=== PATIENT | male | born 1960 ===

== ENCOUNTER 2017-08-06 07:21 | Inpatient (IN) | payer BC ==
[~2017-08-06 07:21] MED LIST: Buffered Lidocaine 0.9% SYRIN* 5 ML/SYR SYRINGE INTRADERM ONE
[2017-08-06] MEDS ORDERED: Buffered Lidocaine 0.9% SYRIN* 5 ML/SYR SYRINGE ONE (07:33)
[2017-08-06] MEDS ORDERED: Clindamycin 900 MG IVPREMIX(* 900 MG/50 ML SDV IV ONE (07:33)
[2017-08-06] MEDS ORDERED: ceFAZolin 2 GM PREMIX (*) 2 GM/50 ML BAG IVPB ONE (07:33)
[2017-08-06] MEDS ORDERED: ceFAZolin 1 GM in Dextrose (*) 1 GM/50 ML BAG IVPB ONE (07:33)
[2017-08-06] MEDS ORDERED: Heparin VIAL(*) 5000 UNITS/ML VIAL (FIVE THOUSAND) ONE (07:46)
[2017-08-06] MEDS ORDERED: fentaNYL* 50 MCG/ML 2 ML VIAL (100 MCG VIAL) ONE ×3 (09:26→13:37)
[2017-08-06] MEDS ORDERED: Midazolam* 1 MG/ML 2 ML VIAL (2 MG) ONE (09:26)
[2017-08-06] MEDS ORDERED: Bupivacaine 0.25% SDV* 30 ML ONE ×2 (09:48→12:27)
[2017-08-06] MEDS ORDERED: Succinylcholine* 20 MG/ML 10 ML VIAL ONE (10:15)
[2017-08-06] MEDS ORDERED: Propofol* 10 MG/ML 20 ML BTL IV PUSH ONE (10:15)
[2017-08-06] MEDS ORDERED: Ondansetron INJ* 2 MG/ML VIAL ONE ×2 (10:15→14:30)
[2017-08-06] MEDS ORDERED: Dexamethasone IV* 4 MG/ML 1 ML (4 MG) ONE (10:15)
[2017-08-06] MEDS ORDERED: Lidocaine 2% PF * 5 ML VIAL ONE (10:16)
[2017-08-06] MEDS ORDERED: Cisatracurium* 2 MG/ML MDV 5 ML ONE (10:25)
[2017-08-06] MEDS ORDERED: EPHEDrine (Pressors)* 50 MG/ML VIAL ONE (10:44)
[2017-08-06] MEDS ORDERED: Phenylephrine INJ* 10 MG/ML 1 ML VIAL (10 MG) ONE (10:49)
[2017-08-06] MEDS ORDERED: HYDROmorphone INJ* 1 MG/ML CARPUJECT SYRINGE IV PRN (11:24)
[2017-08-06] MEDS ORDERED: Metoclopramide IV* 5 MG/ML 2 ML VIAL IV PRN ×2 (11:24→14:00)
[2017-08-06] MEDS ORDERED: PROCHLORPERAZINE INJ 5 MG/ML 2 ML VIAL IV PRN (11:24)
[2017-08-06] MEDS ORDERED: Naloxone* 0.4 MG/ML 1 ML VIAL IV PRN (11:24)
--- NOTE | 2017-08-06 12:36 | BRIEFOPN ---
Brief Operative Note - Surgery Procedures: Pre-OP Diagnoses: Clinically severe obesity Post-op Diagnosis: same Procedure: Laparoscopic sleeve gastrectomy Surgeon: Moon Asst: ADNIA Bray Anethesia: TYRESE EBL: minimal IVF: crystalloid Specimen: portion of stomach Drains: none
[2017-08-06] MEDS ORDERED: HYDROcodone/ACET. 7.5/325 LIQ* 15 ML UDC PO PRN (12:37)
[2017-08-06] MEDS: fentaNYL* 50 MCG/ML 2 ML VIAL (100 MCG VIAL) IV PRN ×5 (13:15→13:39)
[2017-08-06] MEDS ORDERED: HYDROmorphone INJ* 2 MG/ML CARPUJECT SYRINGE ONE (13:48)
[2017-08-06] MEDS: Ondansetron INJ* 2 MG/ML VIAL IV PRN ×2 (14:32→19:26)
[2017-08-06] MEDS ORDERED: Metoclopramide IV* 5 MG/ML 2 ML VIAL ONE (15:16)
[2017-08-06] MEDS: Heparin VIAL(*) 5000 UNITS/ML VIAL (FIVE THOUSAND) SUBCUT SCH ×2 (15:55→22:04)
[2017-08-06] MEDS: HYDROmorphone INJ* 2 MG/ML CARPUJECT SYRINGE IV PRN (20:57)
[2017-08-06] MEDS: Famotidine IV* 10 MG/ML 2 ML (20 mg) IV SLOW PU SCH (22:05)
[2017-08-07] MEDS: Ketorolac INJ* 15 MG/ML 1 ML VIAL IV PRN ×2 (00:18→11:07)
--- NOTE | 2017-08-07 00:20 | OP ---
CC: Kimberly Alba NP; [facility] * DATE OF OPERATION: 08/06/17 - ROOM #352 DATE OF : 58 SURGEON: Nicholas Mustafa MD. [employer] COUNSELORS: DANIA Mon. ANESTHESIOLOGIST: Kelly Silverman MD ANESTHESIA: General. PRE-OPERATIVE DIAGNOSES: 1. Clinically severe obesity. 2. Obstructive sleep apnea. 3. Gastroesophageal reflux disease. 4. Hypertension. POST-OPERATIVE DIAGNOSES: 1. Clinically severe obesity. 2. Obstructive sleep apnea. 3. Gastroesophageal reflux disease. 4. Hypertension. OPERATIVE PROCEDURE: Laparoscopic sleeve gastrectomy. ESTIMATED BLOOD LOSS: Minimal. IV FLUIDS: Minimal crystalloid fluid given. SPECIMEN: Portion of the stomach. COUNTS: Lap pad count and instrument count are correct at the end of the procedure. DESCRIPTION OF PROCEDURE: The patient was identified in the preoperative area, brought to the OR and placed on the operating table in a supine position. Preoperative antibiotics were given. Sequential devices were placed on bilateral lower extremities and general anesthesia was induced. The patient's abdomen was clipped of hair and then prepped and draped in the standard surgical fashion and a time-out was performed. Folds of the umbilicus were elevated anteriorly and a Veress needle was inserted into the abdominal cavity, which was then allowed to insufflate to a pressure of 15 mmHg. The patient tolerated the insufflation well. We utilized the previous incision and cut through the scar at the upper midline and I placed a 12-mm trocar into the abdomen. Laparoscope was inserted through this. There was no evidence of injury from the trocar incision or from the Veress needle, which was then removed. Additional trocars were then placed in the following position: A 5 mm in the left upper quadrant and a 12 mm in the right upper quadrant. Review of the liver showed that it was normal size without any lesions. We did place a Kayleigh retractor through the subxiphoid port and allowed the liver to be retracted anteriorly into the right. We saw scarring from previous lap band placement at this site, but I felt comfortable going forward. We can take this down and an additional 5-mm trocar was then placed in the left lateral position and the patient's table was placed in a deep reverse Trendelenburg. The greater omentum curved around towards the lesser omentum, this was sharply taken down. We saw previously placed sutures from the band and these were cut. There was minimal capsule from previous surgery and it extended mostly along the fat pad. This fat pad was reflected towards the right lower quadrant and both blunt and sharp dissection was utilized to free this up anteriorly. Next, a retrogastric tunnel was made at 6 cm proximal to the pylorus muscle along the greater curvature. We took the vasculature to the greater curvature with LigaSure device right across the short gastric vessels. Posterior attachments were similarly taken with the LigaSure device and we then slowly dissected mostly bluntly, but then sharply the posterior attachments and attachments up at the diaphragm. These were scarring from previous band placement. We then were able to rotate the stomach along its axis. Next, a 60-mm purple stapler with reinforcement strips were placed across the area of the greater curvature, 6 cm proximal to the pylorus and extended towards the incisura. This was clamped and a 40-Yoruba bougie was then inserted with ease into the distal stomach. Hugging the bougie, we fired the first staple line. Additional 60 mm purple TARA staplers with reinforcement strips were then taken staying along the line. We did have to do additional dissection posteriorly that was not done initially to allow the stomach to be rotated along its lesser curvature. There were more posterior attachments once we had the bougie in place for identification sake. The sleeve stomach was then completed with additional 60 mm with one last firing of 45 mm purple TARA stapling with reinforcement strips. Staple line did curve posteriorly at the last staple line. We did remove the bougie prior to this placement. This was not cork screwed and for the most part, the staple line was laterally and good positioning. Hemostasis was excellent. The Kayleigh retractor was removed. The resected portion of the stomach was placed in an endoscopic retrieval bag, this was brought out through the right upper quadrant port site. After dilating the port site, the fascia was reapproximated at this site with 0 Polysorb suture using a Weck device and using 1 simple stitch. The abdomen was allowed to collapse. Trocars were removed under direct vision. All 5 skin incisions were reapproximated with 4-0 Monocryl subcuticular sutures. Steri-Strips and sterile dressing were applied. The patient tolerated the procedure well, was transferred to the PACU in stable condition. [id number]/[facility] #: [id number] MTDD
[2017-08-07] MEDS: Heparin VIAL(*) 5000 UNITS/ML VIAL (FIVE THOUSAND) SUBCUT SCH ×2 (05:10→14:18)
[2017-08-07] MEDS: HYDROmorphone INJ* 2 MG/ML CARPUJECT SYRINGE IV PRN (06:25)
--- NOTE | 2017-08-07 09:05 | PN ---
Progress Note - Progress Note Date of Service: 08/07/17 SOAP: Subjective: pt seen and examined. Feels well. Objective: af vss uo good a and ox3, nad lungs clear abdo: soft/ obese/ incisional tenderness ext wnl Assessment: POD1 sleeve gastrectomy Plan: ugi diet d/c planning likely today SACMA to cover me until 08/11/17. Pt is aware
--- NOTE | 2017-08-07 10:49 | RAD ---
HISTORY: Status post sleeve gastrectomy COMPARISONS: April 02, 2015 TECHNIQUE: A single contrast fluoroscopic study was performed of the esophagus and upper GI tract. Water-soluble liquid contrast was administered under fluoroscopic observation. Multiple digital spot images were obtained Total fluoroscopy time is 0.4 minutes. FINDINGS: ESOPHAGUS: The esophagus is normal in contour, course, and caliber. There is no stricture or web. Contrast passes easily through the gastroesophageal junction into the stomach. There is normal esophageal motility. STOMACH: The patient is status post gastrectomy. Contrast passes easily through the residual stomach. There is no appreciable extravasation or obstruction.. DUODENUM: The duodenum is unremarkable. SMALL BOWEL: The proximal small bowel is unremarkable.. IMPRESSION: STATUS POST GASTRECTOMY. NO APPRECIABLE EXTRAVASATION OR OBSTRUCTION. CPT II Codes: 6045F
[2017-08-07] MEDS: Ondansetron INJ* 2 MG/ML VIAL IV PRN (11:05)
[2017-08-07] MEDS: Famotidine IV* 10 MG/ML 2 ML (20 mg) IV SLOW PU SCH (11:06)
[2017-08-07] MEDS ORDERED: D5W 1/2 NS KCl 20 Meq 1000 ML* 1,000 ML IV SCH (12:38)
[2017-08-07 14:03] VITALS: BP 132/60
--- NOTE | 2017-08-07 15:41 | DS ---
DATE OF ADMISSION: 08/06/2017. DATE OF DISCHARGE: 08/07/2017. ATTENDING SURGEON: Dr. Nicholas Mustafa * (dictated by Mary Kay Fischer NP). HOSPITAL COURSE: Please refer to admission history and physical for admission details. The patient was taken to the operating room on Sunday, August 06, 2017 and underwent laparoscopic sleeve gastrectomy by Dr. Mustafa. He had an eventful postoperative course and required minimal pain medication and was able to meet the criteria for oral intake of bariatric clear liquids. He was ambulating in the halls and using Inspiron. He was seen earlier this morning by Dr. Mustafa and by myself this afternoon and he has met criteria for discharge. PHYSICAL EXAMINATION: General: Well-appearing, in no acute distress. Vital signs are stable. He is afebrile. O2 saturation on room air is 99 percent. Lungs: Breath sounds bilaterally clear and equal. Heart: Regular rate and rhythm. No murmurs or rubs appreciated. Abdomen: Laparoscopic port sites are intact with Steri-Strips which are clean and dry. There is no surrounding erythema or drainage. Active bowel sounds. Abdomen is soft with mild incisional tenderness. Extremities are warm without edema or skin ulceration and calves are nontender. IMPRESSION: Status post laparoscopic sleeve gastrectomy, doing extremely well. PLAN: Discharge home today. Instructions were reviewed with the patient. He has an appointment at [facility] with Dr. Mustafa on 08/11/2017. All of his medications were reviewed. He has a prescription for Lortab Elixir as needed and he may use over- the-counter adult strength liquid Tylenol for mild pain. A prescription for Omeprazole 20 mg p.o. b.i.d. was sent to his pharmacy and the purpose of the medication was explained to the patient. LEIGH ANN FISCHER NP [id number]/[facility] #: [id number] ANGELA
== END 2017-08-07 15:35 | disposition home or self-care (01) | DRG 403 ==
LOC: AA 07:21 → SSU 15:05
PROVIDERS: ADMIT Surgery; ATTEND Surgery
PROC: 0DB64Z3 Excision of Stomach, Percutaneous Endoscopic Approach, Vertical (ICD-10-PCS; principal; 2017-08-06 09:00)
DX: E66.01 Morbid (severe) obesity due to excess calories (principal); L03.116 Cellulitis of left lower limb; F32.9 Major depressive disorder, single episode, unspecified; G47.33 Obstructive sleep apnea (adult) (pediatric); K21.9 Gastro-esophageal reflux disease without esophagitis; I10 Essential (primary) hypertension; R60.9 Edema, unspecified; Z96.652 Presence of left artificial knee joint; Z98.84 Bariatric surgery status; Z80.1 Family history of malignant neoplasm of trachea, bronchus and lung; Z83.6 Family history of other diseases of the respiratory system; Z72.89 Other problems related to lifestyle; Z68.43 Body mass index [BMI] 50.0-59.9, adult; Z88.8 Allergy status to other drugs, medicaments and biological substances
CPT/HCPCS: 43775; 74246; 88307; C1776; J0330; J0690; J1100; J1170; J1644; J1885; J2250; J2405; J2704; J2765; J3010